=== PATIENT | male | born 1995 | race Caucasian/White ===

== ENCOUNTER 2017-02-23 21:56 | Emergency (ER) | payer OTHER ==
[~2017-02-23] VITALS: Ht 190.5 cm; Wt 85.3 kg
[2017-02-23 23:46] VITALS: BP 1318/69
== END 2017-02-23 23:46 | disposition home or self-care (01) ==
LOC: ED 21:56
DX: S61.214A Laceration without foreign body of right ring finger without damage to nail, initial encounter (principal); W45.8XXA Other foreign body or object entering through skin, initial encounter; Y93.89 Activity, other specified; Y92.89 Other specified places as the place of occurrence of the external cause; Y99.8 Other external cause status
CPT/HCPCS: 90715; A4570; J2001